=== PATIENT | female | born 2000 | race Caucasian/White ===

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

== ENCOUNTER 2021-08-21 12:57 | Emergency (ER) | payer OTHER ==
[2021-08-21] MEDS ORDERED: SODIUM CHLORIDE 0.9% 1,000 ML IV STA (13:08)
[2021-08-21] MEDS ORDERED: BACITRACIN OINT 1 EACH PACKET TOPICAL ONE (13:10)
[2021-08-21] MEDS ORDERED: LIDOCAINE 1% INJ 10MG/ML (5 ML VIAL-PF) SQ STA (13:10)
[2021-08-21 13:13] VITALS: RESP 18; TEMP 98.5
[2021-08-21 13:35] LABS: Glucose,Whole Blood 88 mg/dL (75-99)
--- NOTE | 2021-08-21 13:46 | ED ---
General Adult HPI - General Chief complaint: Syncope Stated complaint: syncope Time Seen by Provider: 08/21/21 12:59 Source: patient, EMS Mode of arrival: EMS Limitations: no limitations - History of Present Illness Initial comments: 20-year-old female patient presents to the emergency department today for evaluation after having a syncopal episode while at work. States she started to see stars and feel dizzy next thing she knew she passed out. She did strike her head is unsure if she hit an object or the floor. She does report headache currently. Denies blurred or double vision. She is approximately 15 weeks . . She sees Dr. Berry. Has not had a ultrasound yet to confirm intrauterine . She denies any current dizziness. Denies numbness, tingling, weakness to the extremities. Denies any neck or back pain. Denies any nausea or vomiting. States she has been eating well. Denies any hematuria, dysuria, urinary frequency, urinary urgency. States she has passed out one time in the past while she was in high school. Patient denies any recent rash, cough, shortness of breath, chest pain, abdominal pain, constipation, back pain, hematuria, dysuria, urinary urgency, urinary frequency, or any other complaints. - Related Data Home Medications Medication Instructions Recorded Confirmed Pnv No.95/Ferrous Fum/Folic AC 1 tab PO ONCE 10/05/17 11/07/17 [ Multivitamin Tablet] Previous Rx's Medication Instructions Recorded Ibuprofen [Motrin] 600 mg PO Q6HR PRN #40 tab 11/08/17 Allergies Allergy/AdvReac Type Severity Reaction Status Date / Time No Known Allergies Allergy Verified 11/07/17 05:52 Review of Systems ROS Statement: Those systems with pertinent positive or pertinent negative responses have been documented in the HPI. ROS Other: All systems not noted in ROS Statement are negative. 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,BROKEN ARM, BROKEN FOOT History of Any Multi-Drug Resistant Organisms: None Reported Past Surgical History: Orthopedic Surgery Additional Past Surgical History / Comment(s): left ACL Past Anesthesia/Blood Transfusion Reactions: No Reported Reaction Past Psychological History: No Psychological Hx Reported Smoking Status: Former smoker Past Alcohol Use History: None Reported Past Drug Use History: None Reported - Past Family History Father Family Medical History: No Reported History Mother Family Medical History: No Reported History General Exam Limitations: no limitations General appearance: alert, in no apparent distress, other (Physical well- developed, well-nourished adult female in no acute distress.) Head exam: Present: other (Right forehead laceration, 4 cm.) Eye exam: Present: normal appearance, PERRL, EOMI. Absent: scleral icterus, conjunctival injection, nystagmus, periorbital swelling ENT exam: Present: normal exam, normal oropharynx, mucous membranes moist Neck exam: Present: normal inspection, full ROM, other (Nontender, no step-off, no deformity to firm midline palpation of the posterior cervical spine. Full range of motion without pain or limitation.). Absent: tenderness, meningismus, lymphadenopathy Respiratory exam: Present: normal lung sounds bilaterally. Absent: respiratory distress, wheezes, rales, rhonchi, stridor Cardiovascular Exam: Present: regular rate, normal rhythm, normal heart sounds. Absent: systolic murmur, diastolic murmur, rubs, gallop, clicks GI/Abdominal exam: Present: soft, normal bowel sounds. Absent: distended, tenderness, guarding, rebound, rigid Back exam: Present: normal inspection, other (Nontender, no step-off, no deformity to firm midline palpation of the thoracic and lumbar vertebrae. Full range of motion without pain or limitation.). Absent: vertebral tenderness Neurological exam: Present: alert, oriented X3, CN II-XII intact, other (Strength in all 4 extremities is 5/5.) Psychiatric exam: Present: normal affect, normal mood Skin exam: Present: warm, dry, intact, normal color. Absent: rash Course Vital Signs 08/21/21 08/21/21 08/21/21 12:59 14:01 15:36 Temperature 98.5 F Pulse Rate 78 67 64 Respiratory 18 18 18 Rate Blood Pressure 115/75 114/65 111/81 O2 Sat by Pulse 98 96 96 Oximetry EKG Findings - EKG Comments: EKG Findings:: EKG obtained at 1300 shows sinus bradycardia with sinus arrhythmia. Ventricular rate is 59, UT interval 141, QRS duration 75, QT 430, QTC 430. No evidence of ST elevation or depression. Procedures - Laceration Laceration #1 Consent Obtained: verbal consent Indication: laceration Site: face (Right eyebrow) Size (cm): 4 Description: linear Depth: simple, single layer Anesthetic Used: lidocaine 1% Anesthesia Technique: local infiltration Amount (mls): 4 Pre-repair: irrigated extensively Type of Sutures: nylon Size of Sutures: 6-0 Number of Sutures: 7 Technique: simple, interrupted Patient Tolerated Procedure: well, no complications Medical Decision Making - Medical Decision Making 20-year-old female patient currently 15 weeks presents for evaluation after syncopal episode while working. Physical examination is unremarkable. She is neurologically intact with no focal deficits. Labs reviewed and did reveal sodium 135, chloride 108. Blood glucose 88. Urinalysis is unremarkable for infection. heart tones were within normal range. She denies any headache and repeat neuro evaluation was also within normal range. Due to her we used shared decision making to decide not to do computed tomography scan at this time. Should have laceration to the forehead which was repaired as documented. She is instructed to increase fluids. She has an appointment with her MEDIA LIBRARIAN on Monday she is urged to keep this appointment. Return parameters were discussed in detail. She verbalizes understanding and agrees with this plan. My attending is Dr. Gore. - Lab Data Result diagrams: 08/21/21 13:20 08/21/21 13:20 Lab Results 08/21/21 08/21/21 08/21/21 Range/Units 13:20 13:20 13:20 WBC 7.6 (3.8-10.6) k/uL RBC 4.20 (3.80-5.40) m/uL Hgb 12.7 (11.4-16.0) gm/dL Hct 37.3 (34.0-46.0) % MCV 88.8 (80.0-100.0) fL MCH 30.3 (25.0-35.0) pg MCHC 34.1 (31.0-37.0) g/dL RDW 13.1 (11.5-15.5) % Plt Count 208 (150-450) k/uL MPV 6.9 Neutrophils % 79 % Lymphocytes % 14 % Monocytes % 4 % Eosinophils % 1 % Basophils % 0 % Neutrophils # 6.1 (1.3-7.7) k/uL Lymphocytes # 1.1 (1.0-4.8) k/uL Monocytes # 0.3 (0-1.0) k/uL Eosinophils # 0.1 (0-0.7) k/uL Basophils # 0.0 (0-0.2) k/uL Manual Slide Review Performed RBC Morphology Normal PT 10.3 (9.0-12.0) sec INR 0.9 (<1.2) APTT 19.1 L (22.0-30.0) sec Sodium 135 L (137-145) mmol/L Potassium 4.1 (3.5-5.1) mmol/L Chloride 108 H (98-107) mmol/L Carbon Dioxide 19 L (22-30) mmol/L Anion Gap 8 mmol/L BUN 6 L (7-17) mg/dL Creatinine 0.54 (0.52-1.04) mg/dL Est GFR (CKD-EPI)AfAm >90 (>60 ml/min/1.73 sqM) Est GFR (CKD-EPI)NonAf >90 (>60 ml/min/1.73 sqM) Glucose 81 (74-99) mg/dL POC Glucose (mg/dL) (75-99) mg/dL POC Glu Deputy Clerk Of Court ID Calcium 8.7 (8.4-10.2) mg/dL Total Bilirubin 0.4 (0.2-1.3) mg/dL AST 21 (14-36) U/L ALT 13 (4-34) U/L Alkaline Phosphatase 48 (38-126) U/L Troponin I (0.000-0.034) ng/mL Total Protein 6.7 (6.3-8.2) g/dL Albumin 3.9 (3.5-5.0) g/dL Urine Color Urine Appearance (Clear) Urine pH (5.0-8.0) Ur Specific [place] (1.001-1.035) Urine Protein (Negative) Urine Glucose (UA) (Negative) Urine Ketones (Negative) Urine Blood (Negative) Urine Nitrite (Negative) Urine Bilirubin (Negative) Urine Urobilinogen (<2.0) mg/dL Ur Leukocyte Esterase (Negative) Urine RBC (0-5) /hpf Urine WBC (0-5) /hpf Ur Squamous Epith Cells (0-4) /hpf Urine Bacteria (None) /hpf Urine Mucus (None) /hpf 08/21/21 08/21/21 08/21/21 Range/Units 13:20 13:34 14:38 WBC (3.8-10.6) k/uL RBC (3.80-5.40) m/uL Hgb (11.4-16.0) gm/dL Hct (34.0-46.0) % MCV (80.0-100.0) fL MCH (25.0-35.0) pg MCHC (31.0-37.0) g/dL RDW (11.5-15.5) % Plt Count (150-450) k/uL MPV Neutrophils % % Lymphocytes % % Monocytes % % Eosinophils % % Basophils % % Neutrophils # (1.3-7.7) k/uL Lymphocytes # (1.0-4.8) k/uL Monocytes # (0-1.0) k/uL Eosinophils # (0-0.7) k/uL Basophils # (0-0.2) k/uL Manual Slide Review RBC Morphology PT (9.0-12.0) sec INR (<1.2) APTT (22.0-30.0) sec Sodium (137-145) mmol/L Potassium (3.5-5.1) mmol/L Chloride (98-107) mmol/L Carbon Dioxide (22-30) mmol/L Anion Gap mmol/L BUN (7-17) mg/dL Creatinine (0.52-1.04) mg/dL Est GFR (CKD-EPI)AfAm (>60 ml/min/1.73 sqM) Est GFR (CKD-EPI)NonAf (>60 ml/min/1.73 sqM) Glucose (74-99) mg/dL POC Glucose (mg/dL) 88 (75-99) mg/dL POC Glu Deputy Clerk Of Court ID ReyesJeremias Calcium (8.4-10.2) mg/dL Total Bilirubin (0.2-1.3) mg/dL AST (14-36) U/L ALT (4-34) U/L Alkaline Phosphatase (38-126) U/L Troponin I <0.012 (0.000-0.034) ng/mL Total Protein (6.3-8.2) g/dL Albumin (3.5-5.0) g/dL Urine Color Light Yellow Urine Appearance Cloudy H (Clear) Urine pH 6.5 (5.0-8.0) Ur Specific [place] 1.007 (1.001-1.035) Urine Protein Negative (Negative) Urine Glucose (UA) Negative (Negative) Urine Ketones 1+ H (Negative) Urine Blood Negative (Negative) Urine Nitrite Negative (Negative) Urine Bilirubin Negative (Negative) Urine Urobilinogen <2.0 (<2.0) mg/dL Ur Leukocyte Esterase Large H (Negative) Urine RBC 5 (0-5) /hpf Urine WBC 5 (0-5) /hpf Ur Squamous Epith Cells 25 H (0-4) /hpf Urine Bacteria Occasional H (None) /hpf Urine Mucus Rare H (None) /hpf Disposition Clinical Impression: Syncope, Forehead laceration Disposition: HOME SELF-CARE Condition: Good Instructions (If sedation given, give patient instructions): Care For Your Stitches (ED), Laceration (ED), Syncope (ED), Head Injury (ED) Additional Instructions: Keep wound clean and dry. Cleanse twice daily with warm water and antibacterial soap. Monitor for signs or symptoms of worsening head injury including but not limited to severe headache, dizziness, confusion, or vomiting. Increase fluids. Rest. Follow-up with your MEDIA LIBRARIAN for recheck as soon as possible. Return to the emergency department for any new, worsening, or concerning symptoms. Is patient prescribed a controlled substance at d/c from ED?: No Referrals: None,Stated [Primary Care Provider] - 1-2 days Time of Disposition: 15:14
[2021-08-21 13:50] LABS: ALT 13 U/L (4-34); AST 21 U/L (14-36); African American GFR (CKD) >90 (>60 ml/min/1.73 sqM); Albumin 3.9 g/dL (3.5-5.0); Alkaline Phosphatase 48 U/L (38-126); Anion Gap 8 mmol/L; Blood Urea Nitrogen 6 mg/dL (7-17); Calcium 8.7 mg/dL (8.4-10.2); Carbon Dioxide 19 mmol/L (22-30); Chloride 108 mmol/L (98-107); Glucose 81 mg/dL (74-99); Non-African American GFR(CKD) >90 (>60 ml/min/1.73 sqM); Potassium 4.1 mmol/L (3.5-5.1); Sodium 135 mmol/L (137-145); Total Bilirubin 0.4 mg/dL (0.2-1.3); Total Protein 6.7 g/dL (6.3-8.2)
[2021-08-21 14:04] LABS: INR 0.9 (<1.2); Prothrombin Time 10.3 sec (9.0-12.0)
[2021-08-21 14:21] LABS: Basophils % (A) 0 %; Eosinophils # (A) 0.1 k/uL (0-0.7); Eosinophils % (A) 1 %; HCT 37.3 % (34.0-46.0); HGB 12.7 gm/dL (11.4-16.0); Lymphocytes # (A) 1.1 k/uL (1.0-4.8); Lymphocytes % (A) 14 %; MCH 30.3 pg (25.0-35.0); MCHC 34.1 g/dL (31.0-37.0); MCV 88.8 fL (80.0-100.0); Mean Platelet Volume 6.9; Monocytes # (A) 0.3 k/uL (0-1.0); Monocytes % (A) 4 %; Neutrophils # (A) 6.1 k/uL (1.3-7.7); Neutrophils % (A) 79 %; Platelet Count 208 k/uL (150-450); RDW 13.1 % (11.5-15.5); WBC 7.6 k/uL (3.8-10.6)
[2021-08-21 14:31] LABS: Partial Thromboplastin Time 19.1 sec (22.0-30.0)
[2021-08-21 14:51] LABS: Appearance,Urine Cloudy (Clear); Bacteria,Urine Occasional /hpf; Bilirubin,Urine Negative (Negative); Blood,Urine Negative (Negative); Color,Urine Light Yellow; Glucose,Urine (UA) Negative (Negative); Ketones,Urine 1+ (Negative); Leukocyte Esterase,Urine Large (Negative); Mucus,Urine Rare /hpf; Nitrite,Urine Negative (Negative); PH, Urine 6.5 (5.0-8.0); Protein,Urine Negative (Negative); RBC,Urine 5 /hpf (0-5); Specific Gravity,Urine 1.007 (1.001-1.035); Squamous Epithelial Cell,Urine 25 /hpf (0-4); Urobilinogen,Urine <2.0 mg/dL (<2.0); WBC,Urine 5 /hpf (0-5)
[2021-08-21 15:22] LABS: RBC Morphology Normal
[2021-08-21 15:37] VITALS: BP 111/81; PULSE 64
== END 2021-08-21 15:37 | disposition home or self-care (01) ==
LOC: EC 12:57
DX: O9A.212 Injury, poisoning and certain other consequences of external causes complicating pregnancy, second trimester (principal); S01.81XA Laceration without foreign body of other part of head, initial encounter; R55 Syncope and collapse; Z87.891 Personal history of nicotine dependence; W19.XXXA Unspecified fall, initial encounter; Z3A.15 15 weeks gestation of pregnancy
CPT/HCPCS: 36415; 93005; 80053; 84484; 85025; 85610; 85730; 81001; 12013; 99285; 96360; 96361; J2001

== ENCOUNTER 2021-12-30 08:13 | Outpatient (CLI) | payer OTHER ==
[2021-12-30 09:15] LABS: Appearance,Urine Clear (Clear); Bacteria,Urine Occasional /hpf; Bilirubin,Urine Negative (Negative); Blood,Urine Negative (Negative); Color,Urine Colorless; Glucose,Urine (UA) Negative (Negative); Ketones,Urine Negative (Negative); Leukocyte Esterase,Urine Small (Negative); Mucus,Urine Rare /hpf; Nitrite,Urine Negative (Negative); Protein,Urine Negative (Negative); RBC,Urine 1 /hpf (0-5); Specific Gravity,Urine 1.004 (1.001-1.035); Squamous Epithelial Cell,Urine 3 /hpf (0-4); Urobilinogen,Urine <2.0 mg/dL (<2.0); WBC,Urine 1 /hpf (0-5)
[2021-12-30 09:34] VITALS: BP 101/61; PULSE 99; RESP 16; TEMP 97.2
--- NOTE | 2022-01-04 07:01 | P.MSEPDOC ---
Presenting Problems - Arrival Data Date of Arrival on Unit: 12/30/21 Time of Arrival on Unit: 08:28 Mode of Transport: Ambulatory - Complaint OB-Reason for Admission/Chief Complaint: Pain Medical History - Information : 2 Para: 1 Number of Living Children: 1 - Gestational Age Gestational Age by [place] (wks/days): 34 Weeks and 1 Days Review of Systems - Review of Systems Constitutional: No problems Breast: No problems ENT: No problems Cardiovascular: No problems Respiratory: No problems Gastrointestinal: No problems Genitourinary: No problems Musculoskeletal: No problems Neurological: No problems Skin: No problems Vital Signs - Temperature Temperature: 97.2 F Temperature Source: Oral - Pulse Right Sitting Brachial Pulse Rate: 99 Pulse Assessment Method: Automatic Cuff - Respirations Respiratory Rate: 16 Oxygen Delivery Method: Room Air O2 Sat by Pulse Oximetry: 97 - Blood Pressure Right Arm Sitting Blood Pressure: 101/61 Blood Pressure Mean: 74 Blood Pressure Source: Automatic Cuff Medical Screen Scoring - Cervical Exam Dilation (cm): 0 Effacement (%): 0 Station: -2 Membranes: Intact - Uterine Contractions Frequency From (mins): 0 Frequency To (mins): 0 Duration From (seconds): 0 Duration To (seconds): 0 Intensity: Absent Resting: Soft to palpation - Assessment - Baby A Baseline FHR: 120 Heart Rate - NICHD Category: Category I (Normal) NST: Reactive Physician Notification - Physician Notified Physician Notified Date: 12/30/21 Physician Notified Time: 08:33 Physician: Troy Berry New Order Received: Yes - Notification Comment Comment: labs, monitor Maternal Triage Index - Maternal Triage Index Presenting for scheduled procedure w/no complaint: No - Stat/Priority 1 Stat Priority 1: No - Urgent/Priority 2 Urgent Priority 2: No - Prompt/Priority 3 Prompt Priority 3: Yes Criteria Met for Priority 3: pain/contx Disposition - Disposition OB Disposition: Discharge to home Discharge Date: 12/30/21 Discharge Time: 09:30 I agree with the RN Medical Screening Exam: Yes Case reviewed; plan agreed upon as documented in EMR&OBIX.: Yes Diagnosis: FALSE LABOR BEFORE 37 COMPLETED WEEKS OF GEST, THIRD TRI
== END 2021-12-30 09:30 | disposition home or self-care (01) ==
LOC: FBPOP 08:13
PROVIDERS: ATTEND Obstetrics & Gynecology
DX: O47.03 False labor before 37 completed weeks of gestation, third trimester (principal); Z3A.34 34 weeks gestation of pregnancy
CPT/HCPCS: 59025; 81001; G0463; 99213

== ENCOUNTER 2022-02-03 05:44 | Inpatient (IN) | payer OTHER ==
--- NOTE | 2022-02-02 07:36 | P.HPOB ---
History of Present Illness H&P Date: 02/02/22 Chief Complaint: Requested induction of labor This patient is a pleasant 21-year-old 2 para 1 female estimated date of confinement 02/09/2022 estimated gestational age 39 and one sevenths weeks who presents to labor and delivery for requested induction of labor. Patient's care has been complicated by a syncopal episode in the first trimester that resulted in a right orbit laceration. Patient also has a history of macrosomia without any delivery problems. Patient's had an negative group B strep this however had a positive group B strep with a previous . Patient is uncomfortable at this time and requesting induction. 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,BROKEN ARM, BROKEN FOOT History of Any Multi-Drug Resistant Organisms: None Reported Past Surgical History: Orthopedic Surgery Additional Past Surgical History / Comment(s): left ACL Past Anesthesia/Blood Transfusion Reactions: No Reported Reaction Past Psychological History: No Psychological Hx Reported Smoking Status: Never smoker, Vaper Past Alcohol Use History: None Reported Past Drug Use History: None Reported - Past Family History Father Family Medical History: No Reported History Mother Family Medical History: No Reported History Medications and Allergies Home Medications Medication Instructions Recorded Confirmed Type Pnv No.95/Ferrous Fum/Folic AC 1 tab PO ONCE 10/05/17 12/30/21 History [ Multivitamin Tablet] Allergies Allergy/AdvReac Type Severity Reaction Status Date / Time No Known Allergies Allergy Verified 12/30/21 08:25 Exam - OBG Physical Exam Abdomen: bowel sounds normal, no diffuse tenderness, no bruit present, no guarding noted, no hepatomegaly, no splenomegaly, no mass Vulva: both: normal Vagina: normal moisture, no discharge Cervix: no lesion (Cervix is 2-3 cm soft and the office.), no discharge Uterus: enlarged (Fundal height is 39 cm) Results blood work shows she is a positive, rubella immune, RPR is nonreactive, hepatitis B is negative, HIV is nonreactive, Glucola was 88, ultrasounds have been normal most recent ultrasound showed the baby 5 lbs. 11 oz. Group B strep was negative Assessment and Plan Assessment: This is a pleasant 21-year-old 2 para 1 female 39 and one sevenths weeks gestation who presents to labor and delivery for requested induction of labor. Patient's had negative group B strep this but history of positive therefore plan is antibiotic prophylaxis, Pitocin induction of labor per protocol. Anticipate vaginal delivery. (1) 39 weeks gestation of Status: Acute Code(s): Z3A.39 - 39 WEEKS GESTATION OF SNOMED Code(s): 64338802 (2) History of group B Streptococcus urinary tract infection, currently Status: Acute Code(s): O09.899 - SUPERVISION OF OTHER HIGH RISK PREGNANCIES, UNSP TRIMESTER; Z87.440 - PERSONAL HISTORY OF URINARY (TRACT) INFECTIONS SNOMED Code(s): 3730137603826 (3) Elective induction of labor planned Status: Acute Code(s): OWB5078 - SNOMED Code(s): 640107651
[2022-02-03] MEDS ORDERED: TERBUTALINE 1 MG/ML VIAL SQ PRN (05:49)
[2022-02-03] MEDS ORDERED: LIDOCAINE 0.5% (PF) 5 MG/ML (50 ML SDV) SQ PRN (05:49)
[2022-02-03] MEDS ORDERED: LACTATED RINGERS 1,000 ML IV SCH (05:49)
[2022-02-03] MEDS ORDERED: OXYTOCIN 30 UNITS/500 ML NS 30 UNIT in SALINE 1 500ML.BAG IV SCH ×2 (05:49→12:39)
[2022-02-03] MEDS ORDERED: AMPICILLIN 2,000 MG in SODIUM CHLORIDE 0.9% 100 ML IVPB ONE (06:00)
[2022-02-03 06:29] LABS: Basophils % (A) 0 %; Eosinophils # (A) 0.2 k/uL (0-0.7); Eosinophils % (A) 2 %; HCT 36.1 % (34.0-46.0); HGB 12.5 gm/dL (11.4-16.0); Lymphocytes # (A) 1.9 k/uL (1.0-4.8); Lymphocytes % (A) 20 %; MCH 30.1 pg (25.0-35.0); MCHC 34.7 g/dL (31.0-37.0); MCV 86.9 fL (80.0-100.0); Mean Platelet Volume 7.9; Monocytes # (A) 0.6 k/uL (0-1.0); Monocytes % (A) 6 %; Neutrophils # (A) 6.6 k/uL (1.3-7.7); Neutrophils % (A) 68 %; Platelet Count 236 k/uL (150-450); RBC 4.16 m/uL (3.80-5.40); RDW 13.9 % (11.5-15.5); WBC 9.6 k/uL (3.8-10.6)
[2022-02-03] MEDS ORDERED: AMPICILLIN 1,000 MG in SODIUM CHLORIDE 0.9% 50 ML IVPB SCH (10:00)
[2022-02-03] MEDS ORDERED: SODIUM CHLORIDE 0.9% 100 ML BAG ONE (10:42)
[2022-02-03] MEDS ORDERED: fentaNYL (PF) 50 MCG/ML 5 ML AMP ONE (10:42)
[2022-02-03] MEDS ORDERED: ROPIVACAINE 5 MG/ML 20 ML AMPULE ONE (10:42)
[2022-02-03] MEDS ORDERED: ROPIVACAINE 100 MG, fentaNYL (PF). 200 MCG in SODIUM CHLORIDE 0.9% 76 ML EPIDURAL ONE (11:08)
--- NOTE | 2022-02-03 12:16 | P.PROBDLV ---
Vaginal Delivery Note - . Vaginal Delivery Note: Normal vaginal delivery viable female Apgars 9 and 9 delivery time is 1201 hrs. Please see dictated H&P for intimate details of this patient's admission. In brief summary this is a pleasant 21-year-old 2 para 1 female estimated gestational age 39 and one sevenths weeks who presents to labor and delivery for requested induction of labor. On admission patient is given antibiotics due to history of positive strep with her first and Pitocin induction of labor per protocol. Patient is artificial rupture membranes at 3 cm dilated for clear fluid. Labor progresses quickly and she does get an epidural for pain control. Patient gets to complete pushes the head to the perineum. Posterior perineum was supported we have controlled delivery of the 's head over the intact perineum. Mouth and nares are bulb suctioned. Infant's head is straight occiput anterior presentation. At this time the anterior shoulder spontaneously delivers followed by the posterior shoulder and rest this infant's body. This is a vigorous viable female Apgars are 9 and 9 delivery time was 1201 hrs. After delivery of the the infant is laid on the mother's abdomen. The umbilical cord is clamped and cut after it is done pulsating. The bladder is drained this time for a couple 100 mL of urine and then the placenta spontaneously delivers intact. Estimated blood loss is about 100 mL. Inspection of perineum shows a superficial posterior first-degree laceration is reapproximated with 3-0 Vicryl good reapproximation is noted. There are no complications. All counts are correct 3. Infant and mother stable delivery room.
[2022-02-03] MEDS ORDERED: BENZOCAINE/MENTHOL SPRAY 1 GM/SPRAY AEROSOL TOPICAL PRN (12:39)
[2022-02-03] MEDS ORDERED: diphenhydrAMINE 50 MG/ML 1 ML VIAL IVP PRN (12:39)
[2022-02-03] MEDS ORDERED: LANOLIN CREAM 5 GM TUBE TOPICAL PRN (12:39)
[2022-02-03] MEDS ORDERED: HYDROCORTISONE 2.5% RECTAL CREAM 30 GM TUBE RECTAL PRN (12:39)
[2022-02-03] MEDS ORDERED: SIMETHICONE 80 MG CHEWABLE PO PRN (12:39)
[2022-02-03] MEDS ORDERED: ZOLPIDEM 5 MG TAB PO PRN (12:39)
[2022-02-03] MEDS ORDERED: IBUPROFEN 600 MG TAB PO PRN (12:39)
[2022-02-03] MEDS ORDERED: diphenhydrAMINE 25 MG CAP PO PRN (12:39)
[2022-02-03] MEDS ORDERED: bisacodyL 10 MG SUPP RECTAL PRN (12:39)
[2022-02-03] MEDS ORDERED: ACETAMINOPHEN TAB 325 MG TAB PO PRN (12:39)
[2022-02-03] MEDS: SENNOSIDES-DOCUSATE SODIUM 1 EACH TAB PO SCH ×2 (20:20→20:34)
--- NOTE | 2022-02-04 06:15 | P.PNOBGVD ---
Subjective - Subjective Patient reports: Reports appetite normal, Reports voiding normally, Reports pain well controlled, Reports ambulating normally : doing well Objective - Latest Vital Signs Latest vital signs: Vital Signs Temp Pulse Resp BP Pulse Ox 02/04/22 04:00 98.0 F 76 16 106/70 96 02/04/22 00:00 98.0 F 63 16 108/68 02/03/22 20:00 98.5 F 84 16 112/78 96 02/03/22 15:01 98.5 F 66 16 113/65 02/03/22 14:40 97.0 F L 81 16 112/64 02/03/22 13:52 64 16 113/65 02/03/22 13:25 72 16 108/60 02/03/22 13:10 68 16 132/80 02/03/22 12:55 68 16 112/63 02/03/22 12:40 97.0 F L 84 16 114/72 02/03/22 12:25 88 16 120/70 Intake and Output 02/03/22 02/03/22 02/04/22 14:59 22:59 06:59 Output Total 550 600 Balance -550 -600 Output: Urine 200 600 Estimated Blood Loss 150 Output, Quantitative 200 Blood Loss Other: # Voids 1 1 2 - Exam Lungs: bilateral: normal Chest: Normal S1, Normal S2 Extremities: Present: normal Abdomen: Present: normal appearance, soft Uterus: Present: normal, firm Assessment and Plan Assessment: Post day #1. Patient is resting without complaints and wishes to go home. Vital signs are stable she's afebrile. Uterus is firm nontender and she is having normal lochia. My impression this is a normal course. Plan is to continue routine care discharge home later today. (1) 39 weeks gestation of Current Visit: No Status: Acute Code(s): Z3A.39 - 39 WEEKS GESTATION OF SNOMED Code(s): 61208945 (2) History of group B Streptococcus urinary tract infection, currently Current Visit: No Status: Acute Code(s): O09.899 - SUPERVISION OF OTHER HIGH RISK PREGNANCIES, UNSP TRIMESTER; Z87.440 - PERSONAL HISTORY OF URINARY (TRACT) INFECTIONS SNOMED Code(s): 5791577910350 (3) Elective induction of labor planned Current Visit: No Status: Acute Code(s): SZM1709 - SNOMED Code(s): 036320998
--- NOTE | 2022-02-04 06:20 | P.DS ---
Providers Date of admission: 02/03/22 05:44 Expected date of discharge: 02/04/22 Attending physician: Troy Berry Primary care physician: Stated None - Discharge Diagnosis(es) (1) 39 weeks gestation of Current Visit: No Status: Acute (2) History of group B Streptococcus urinary tract infection, currently Current Visit: No Status: Acute (3) Elective induction of labor planned Current Visit: No Status: Acute Hospital Course: Please see dictated H&P for intimate details of this patient's admission. Brief summary this is a pleasant 21-year-old 2 para 1 female 39 and one sevenths weeks who is admitted to labor and delivery for elective induction of labor. Patient was on have a vaginal delivery viable female . Please see dictated delivery note. day #1 patient's felt be stable for discharge home follow up with me in 6 weeks. Procedures: Induction of labor and normal vaginal delivery Patient Condition at Discharge: Good Plan - Discharge Summary New Discharge Prescriptions: New Ibuprofen [Motrin] 600 mg PO Q6HR PRN #30 tab PRN Reason: Mild Pain (Scale 1 To 3) No Action Pnv No.95/Ferrous Fum/Folic AC [ Multivitamin Tablet] 1 tab PO ONCE Discharge Medication List Pnv No.95/Ferrous Fum/Folic AC [ Multivitamin Tablet] 1 tab PO ONCE 10/05/17 [History] Ibuprofen [Motrin] 600 mg PO Q6HR PRN #30 tab 02/04/22 [Rx] Follow up Appointment(s)/Referral(s): Troy Berry MD [STAFF PHYSICIAN] - 03/17/22 9:30 am
[2022-02-04 07:00] LABS: Basophils % (A) 0 %; Eosinophils # (A) 0.2 k/uL (0-0.7); Eosinophils % (A) 1 %; HCT 34.3 % (34.0-46.0); HGB 12.1 gm/dL (11.4-16.0); Lymphocytes # (A) 2.1 k/uL (1.0-4.8); Lymphocytes % (A) 19 %; MCH 30.8 pg (25.0-35.0); MCHC 35.2 g/dL (31.0-37.0); MCV 87.6 fL (80.0-100.0); Mean Platelet Volume 7.5; Monocytes # (A) 0.8 k/uL (0-1.0); Monocytes % (A) 7 %; Neutrophils # (A) 7.8 k/uL (1.3-7.7); Neutrophils % (A) 70 %; Platelet Count 186 k/uL (150-450); RBC 3.92 m/uL (3.80-5.40); RDW 13.6 % (11.5-15.5); WBC 11.2 k/uL (3.8-10.6)
[2022-02-04] MEDS: SENNOSIDES-DOCUSATE SODIUM 1 EACH TAB PO SCH (08:01)
[2022-02-04 08:07] VITALS: BP 107/72; PULSE 66; RESP 14; TEMP 97.8
== END 2022-02-04 14:15 | disposition home or self-care (01) | DRG 807 ==
LOC: 4FBP 05:44
PROVIDERS: ADMIT Obstetrics & Gynecology; ATTEND Obstetrics & Gynecology
PROC: 0HQ9XZZ Repair Perineum Skin, External Approach (ICD-10-PCS; principal; 2022-02-03)
PROC: 10E0XZZ Delivery of Products of Conception, External Approach (ICD-10-PCS; principal; 2022-02-03)
DX: O70.0 First degree perineal laceration during delivery (principal); Z37.0 Single live birth; Z86.73 Personal history of transient ischemic attack (TIA), and cerebral infarction without residual deficits; H91.92 Unspecified hearing loss, left ear; Z3A.39 39 weeks gestation of pregnancy; Z87.440 Personal history of urinary (tract) infections; Z28.310 Unvaccinated for COVID-19
CPT/HCPCS: 85025; 86850; 86900; 86901

== ENCOUNTER 2022-07-07 21:17 | Emergency (ER) | payer OTHER ==
[2022-07-07 21:26] VITALS: BP 115/75
[2022-07-07] MEDS ORDERED: SODIUM CHLORIDE 0.9% 1,000 ML IV ONE (22:00)
[2022-07-07] MEDS ORDERED: ONDANSETRON 4 MG/2 ML VIAL IVP STA (22:00)
[2022-07-07] MEDS ORDERED: KETOROLAC 15 MG/ML 1 ML VIAL IVP STA (22:14)
--- NOTE | 2022-07-07 22:33 | ED ---
General Adult HPI - General Chief complaint: Fever Stated complaint: Mastitis Time Seen by Provider: 07/07/22 21:38 Source: patient Mode of arrival: ambulatory Limitations: no limitations - History of Present Illness Initial comments: This is a 21-year-old female with no past medical history presents emergency department for right breast tenderness and discharge. The patient is 5 months and stated that over the last one day she started to experience pain in the right nipple radiating up to her axilla. The patient stated that she had dark breastmilk and had continued pain and tenderness throughout the right breast throughout the day. The patient stated that she did have fevers and chills earlier in the day today which made her come to the emergency department. The patient denied any other acute pain or complaints at this time. The patient was resting in bed without any other complaints but did state that her right breast was tender to even small motion. - Related Data Home Medications Medication Instructions Recorded Confirmed Pnv No.95/Ferrous Fum/Folic AC 1 tab PO ONCE 10/05/17 02/03/22 [ Multivitamin Tablet] Previous Rx's Medication Instructions Recorded Ibuprofen [Motrin] 600 mg PO Q6HR PRN #30 tab 02/04/22 Dicloxacillin [Dynapen] 500 mg PO Q6H #40 capsule 07/07/22 Allergies Allergy/AdvReac Type Severity Reaction Status Date / Time No Known Allergies Allergy Verified 07/07/22 21:22 Review of Systems ROS Statement: Those systems with pertinent positive or pertinent negative responses have been documented in the HPI. ROS Other: All systems not noted in ROS Statement are negative. 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,BROKEN ARM, BROKEN FOOT History of Any Multi-Drug Resistant Organisms: None Reported Past Surgical History: Orthopedic Surgery Additional Past Surgical History / Comment(s): left ACL Past Anesthesia/Blood Transfusion Reactions: No Reported Reaction Past Psychological History: No Psychological Hx Reported Smoking Status: Vaper Past Alcohol Use History: None Reported Past Drug Use History: None Reported - Past Family History Father Family Medical History: No Reported History Mother Family Medical History: No Reported History General Exam Limitations: no limitations General appearance: alert, in no apparent distress Head exam: Present: atraumatic, normocephalic, normal inspection Eye exam: Present: normal appearance, PERRL Pupils: Present: normal accommodation ENT exam: Present: normal exam, normal oropharynx, mucous membranes moist Neck exam: Present: normal inspection, full ROM Respiratory exam: Present: normal lung sounds bilaterally Cardiovascular Exam: Present: regular rate, normal rhythm, normal heart sounds GI/Abdominal exam: Present: soft, normal bowel sounds Extremities exam: Present: normal inspection, full ROM Back exam: Present: normal inspection, full ROM Neurological exam: Present: alert, oriented X3, CN II-XII intact Psychiatric exam: Present: normal affect, normal mood Skin exam: Present: warm, dry Expanded Type of lesion: Present: other (Erythema noted around the right breast with minimal dried white discharge noted at the right nipple. There was tenderness palpation over the right breast up through the 10 o'clock position. There was minor swelling and tenderness palpation in the right axilla. A head of research & insights was present ) Course Vital Signs 07/07/22 07/07/22 21:23 23:28 Temperature 101.9 F H 98.9 F Pulse Rate 125 H 85 Respiratory 18 16 Rate Blood Pressure 115/75 O2 Sat by Pulse 98 Oximetry Medical Decision Making - Medical Decision Making Was pt. sent in by a medical professional or institution (, PA, PERIPATOLOGIST, urgent care, hospital, or [place] health care facility...) When possible be specific @ -No Did you speak to anyone other than the patient for history (EMS, parent, family, police, friend...)? What history was obtained from this source @ -No Did you review nursing and triage notes (agree or disagree)? Why? @ -I reviewed and agree with nursing and triage notes Were old charts reviewed (outside hosp., previous admission, EMS record, old EKG, old radiological studies, urgent care reports/EKG's, [place] health care facility records)? Report findings @ -No old charts were reviewed Differential Diagnosis (chest pain, altered mental status, abdominal pain women, abdominal pain men, vaginal bleeding, weakness, fever, dyspnea, syncope, headache, dizziness, GI bleed, back pain, seizure, CVA, palpatations, mental health)? @ -Breast abscess, breast cellulitis, mastitis EKG interpreted by me (3pts min.). @ -None X-rays interpreted by me (1pt min.). @ -None done CT interpreted by me (1pt min.). @ -None done U/S interpreted by me (1pt. min.). @ -None done What testing was considered but not performed or refused? (CT, X-rays, U/S, labs)? Why? @ -An ultrasound of the right breast was considered however the patient didn't have any fluctuance or central area of induration or erythema noted. What meds were considered but not given or refused? Why? @ -None Did you discuss the management of the patient with other professionals (professionals i.e. , PA, PERIPATOLOGIST, lab, RT, psych nurse, healthcare social worker, wire turning machine operator, teacher, transportation officer, shelter case manager)? Give summary @ -No Was smoking cessation discussed for >3mins.? @ -No Was critical care preformed (if so, how long)? @ -No Were there social determinants of health that impacted care today? How? (Homelessness, low income, unemployed, alcoholism, drug addiction, transportation, low edu. Level, literacy, decrease access to med. care, alf, rehab)? @ -No Was there de-escalation of care discussed even if they declined (Discuss DNR or withdrawal of care, Hospice)? DNR status @ -No What co-morbidities impacted this encounter? (DM, HTN, Smoking, COPD, CAD, Cancer, CVA, ARF, Chemo, Hep., AIDS, mental health diagnosis, sleep apnea, morbid obesity)? @ -None Was patient admitted / discharged? Hospital course, mention meds given and route, prescriptions, significant lab abnormalities, going to OR and other pertinent info. @ -The patient was seen and evaluated in the emergency department. Physical exam, the patient was resting in bed without any acute distress. Initially, the patient had a temperature 101.9F and a heart rate of 125. On my evaluation, she was no longer tachycardic. Physical exam findings were consistent with mastitis and there was no central area of fluctuance or need for ultrasound at this time. Laboratory workup was obtained and did not show any abnormalities. Was started on dicloxacillin and the patient was given 1 L of normal saline fluid as well as Toradol. On reevaluation, the patient had significant improvement to her pain and discomfort. The patient was given a dose of antibiotic in the emergency department as well as a prescription for the remaind er of the antibiotic to be taken. The patient was counseled extensively to use warm compresses as well as Tylenol and Motrin for discomfort. The patient was also advised to continue to breast-feed. She was also counseled to report back to the emergency department if she had worsening swelling and pain despite being on antibiotics. The patient was agreeable to this and all of her questions were answered. The patient was discharged home in stable condition with her . Undiagnosed new problem with uncertain prognosis? @ -No Drug Therapy requiring intensive monitoring for toxicity (Heparin, Nitro, Insulin, Cardizem)? @ -No Were any procedures done? @ -No Diagnosis/symptom? @ -Right mastitis Acute, or Chronic, or Acute on Chronic? @ -Acute Uncomplicated (without systemic symptoms) or Complicated (systemic symptoms)? @ -Uncomplicated Side effects of treatment? @ -No Exacerbation, Progression, or Severe Exacerbation? @ -No Poses a threat to life or bodily function? How? (Chest pain, [place], [place], pneumonia, PE, COPD, DKA, ARF, appy, cholecystitis, CVA, Diverticulitis, Homicidal, Suicidal, threat to staff... and all critical care pts) @ -No - Lab Data Result diagrams: 07/07/22 22:38 07/07/22 22:38 Lab Results 07/07/22 07/07/22 Range/Units 22:38 22:38 WBC 10.4 (3.8-10.6) k/uL RBC 4.54 (3.80-5.40) m/uL Hgb 14.0 (11.4-16.0) gm/dL Hct 38.5 (34.0-46.0) % MCV 84.8 (80.0-100.0) fL MCH 30.8 (25.0-35.0) pg MCHC 36.3 (31.0-37.0) g/dL RDW 12.6 (11.5-15.5) % Plt Count 249 (150-450) k/uL MPV 6.7 Neutrophils % 88 % Lymphocytes % 7 % Monocytes % 4 % Eosinophils % 1 % Basophils % 0 % Neutrophils # 9.1 H (1.3-7.7) k/uL Lymphocytes # 0.8 L (1.0-4.8) k/uL Monocytes # 0.4 (0-1.0) k/uL Eosinophils # 0.1 (0-0.7) k/uL Basophils # 0.0 (0-0.2) k/uL Hyperchromasia Slight Sodium 137 (137-145) mmol/L Potassium 4.6 (3.5-5.1) mmol/L Chloride 106 (98-107) mmol/L Carbon Dioxide 22 (22-30) mmol/L Anion Gap 9 mmol/L BUN 18 H (7-17) mg/dL Creatinine 0.77 (0.52-1.04) mg/dL Est GFR (CKD-EPI)AfAm >90 (>60 ml/min/1.73 sqM) Est GFR (CKD-EPI)NonAf >90 (>60 ml/min/1.73 sqM) Glucose 100 H (74-99) mg/dL Calcium 9.3 (8.4-10.2) mg/dL Magnesium 1.8 (1.6-2.3) mg/dL Total Bilirubin 0.6 (0.2-1.3) mg/dL AST 28 (14-36) U/L ALT 28 (4-34) U/L Alkaline Phosphatase 95 (38-126) U/L Total Protein 8.1 (6.3-8.2) g/dL Albumin 4.7 (3.5-5.0) g/dL Disposition Clinical Impression: Mastitis Disposition: HOME SELF-CARE Condition: Stable Instructions (If sedation given, give patient instructions): Mastitis (ED) Prescriptions: Dicloxacillin [Dynapen] 500 mg PO Q6H #40 capsule Is patient prescribed a controlled substance at d/c from ED?: No Referrals: Pato Tyler DO [Primary Care Provider] - 1-2 days Time of Disposition: 22:50
[2022-07-07 22:44] LABS: Basophils % (A) 0 %; Eosinophils # (A) 0.1 k/uL (0-0.7); Eosinophils % (A) 1 %; HCT 38.5 % (34.0-46.0); Hyperchromasia Slight; Lymphocytes # (A) 0.8 k/uL (1.0-4.8); Lymphocytes % (A) 7 %; MCH 30.8 pg (25.0-35.0); MCHC 36.3 g/dL (31.0-37.0); MCV 84.8 fL (80.0-100.0); Mean Platelet Volume 6.7; Monocytes # (A) 0.4 k/uL (0-1.0); Monocytes % (A) 4 %; Neutrophils # (A) 9.1 k/uL (1.3-7.7); Neutrophils % (A) 88 %; Platelet Count 249 k/uL (150-450); RBC 4.54 m/uL (3.80-5.40); RDW 12.6 % (11.5-15.5); WBC 10.4 k/uL (3.8-10.6)
[2022-07-07 22:56] LABS: ALT 28 U/L (4-34); AST 28 U/L (14-36); African American GFR (CKD) >90 (>60 ml/min/1.73 sqM); Albumin 4.7 g/dL (3.5-5.0); Alkaline Phosphatase 95 U/L (38-126); Anion Gap 9 mmol/L; Blood Urea Nitrogen 18 mg/dL (7-17); Calcium 9.3 mg/dL (8.4-10.2); Carbon Dioxide 22 mmol/L (22-30); Chloride 106 mmol/L (98-107); Glucose 100 mg/dL (74-99); Magnesium 1.8 mg/dL (1.6-2.3); Non-African American GFR(CKD) >90 (>60 ml/min/1.73 sqM); Potassium 4.6 mmol/L (3.5-5.1); Sodium 137 mmol/L (137-145); Total Bilirubin 0.6 mg/dL (0.2-1.3); Total Protein 8.1 g/dL (6.3-8.2)
[2022-07-07] MEDS ORDERED: DICLOXACILLIN 250 MG CAPSULE PO ONE (23:00)
[2022-07-07 23:29] VITALS: PULSE 85; RESP 16; TEMP 98.9
== END 2022-07-07 23:29 | disposition home or self-care (01) ==
LOC: EC 21:17
DX: N61.0 Mastitis without abscess (principal); F17.290 Nicotine dependence, other tobacco product, uncomplicated
CPT/HCPCS: 36415; 80053; 83735; 85025; 99283; 96374; 96375; 96361; J2405; J1885

== ENCOUNTER 2022-12-14 23:03 | Emergency (ER) | payer OTHER ==
[2022-12-14 23:23] VITALS: BP 132/76; PULSE 61; RESP 18; TEMP 98
[2022-12-15] MEDS ORDERED: ONDANSETRON 4 MG/2 ML VIAL IVP STA (01:08)
[2022-12-15] MEDS ORDERED: PANTOPRAZOLE 40 MG/10 ML VIAL IVP STA (01:08)
[2022-12-15] MEDS ORDERED: SODIUM CHLORIDE 0.9% 1,000 ML IV STA (01:08)
[2022-12-15] MEDS ORDERED: KETOROLAC 15 MG/ML 1 ML VIAL IVP STA (01:08)
[2022-12-15] MEDS ORDERED: diphenhydrAMINE 50 MG/ML 1 ML VIAL IVP STA (01:09)
--- NOTE | 2022-12-15 02:01 | ED ---
General Adult HPI - General Chief complaint: Abdominal Pain Stated complaint: Abdominal Pain Time Seen by Provider: 12/15/22 00:55 Source: patient, family, RN notes reviewed, old records reviewed Mode of arrival: wheelchair Limitations: no limitations - History of Present Illness Initial comments: Patient is a 22-year-old female who presents emergency Department complaining of primarily abdominal pain. Has been ongoing for the last 1-2 days. Complaining of epigastric and mild right upper quadrant abdominal discomfort. Associated with nonbilious nonbloody emesis. Total of 3 episodes of emesis today. Denies any constipation, and is still having episodes of flatus. Denies any shortness of breath. Does endorse some chest discomfort when she is throwing up. Denies any marijuana use. Denies any abdominal surgeries previously. His no other acute complaints at this time. Presents for further evaluation at this time. - Related Data Home Medications Medication Instructions Recorded Confirmed Pnv No.95/Ferrous Fum/Folic AC 1 tab PO ONCE 10/05/17 02/03/22 [ Multivitamin Tablet] Previous Rx's Medication Instructions Recorded Ibuprofen [Motrin] 600 mg PO Q6HR PRN #30 tab 02/04/22 Dicloxacillin [Dynapen] 500 mg PO Q6H #40 capsule 07/07/22 Cephalexin [Keflex] 500 mg PO Q6HR 10 Days #40 cap 07/08/22 Allergies Allergy/AdvReac Type Severity Reaction Status Date / Time No Known Allergies Allergy Verified 12/14/22 23:20 Review of Systems ROS Statement: Those systems with pertinent positive or pertinent negative responses have been documented in the HPI. Review of Systems: CONST: Denies fever EYES: Denies blurry vision ENT: Denies nasal congestion C/V: Denies Chest pain RESP: Denies shortness of breath GI: Endorses abdominal pain : Denies dysuria SKIN: Denies rash. MSK: Denies joint pain. NEURO: Denies headache ROS Other: All systems not noted in ROS Statement are negative. 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,BROKEN ARM, BROKEN FOOT History of Any Multi-Drug Resistant Organisms: None Reported Past Surgical History: Orthopedic Surgery Additional Past Surgical History / Comment(s): left ACL Past Anesthesia/Blood Transfusion Reactions: No Reported Reaction Past Psychological History: No Psychological Hx Reported Smoking Status: Vaper Past Alcohol Use History: None Reported Past Drug Use History: None Reported - Past Family History Father Family Medical History: No Reported History Mother Family Medical History: No Reported History General Exam - General Exam Comments Initial Comments: General: Appears in mild to moderate distress secondary to abdominal pain HEAD: Normal with no signs of head trauma. EYES: PERRLA, EOMI, conjunctiva normal, no discharge. ENT: Hearing grossly intact, normal oropharynx. RESPIRATORY: Clear breath sounds bilaterally. No wheezes, rales, or rhonchi. C/V: Regular rate and rhythm. S1 and S2 auscultated, peripheral pulses 2+ and intact throughout ABD: Abdomen is soft, nondistended. Tender to palpation epigastric and right upper quadrant. No guarding. No rebound tenderness. No peritoneal signs. EXT: Normal range of motion, no obvious deformity SKIN: No rashes or lesions observed on exposed skin. NEURO: Alert and oriented 4. Limitations: no limitations Course Vital Signs 12/14/22 23:20 Temperature 98 F Pulse Rate 61 Respiratory 18 Rate Blood Pressure 132/76 O2 Sat by Pulse 99 Oximetry Medical Decision Making - Medical Decision Making Was pt. sent in by a medical professional or institution (, PA, FELLMONGERING MACHINE OPERATOR, urgent care, hospital, or [facility]...) When possible be specific @ -No Did you speak to anyone other than the patient for history (EMS, parent, family, police, friend...)? What history was obtained from this source @ -No Did you review nursing and triage notes (agree or disagree)? Why? @ -I reviewed and agree with nursing and triage notes Were old charts reviewed (outside hosp., previous admission, EMS record, old EKG, old radiological studies, urgent care reports/EKG's, [facility] records)? Report findings @ -Old charts were reviewed Differential Diagnosis (chest pain, altered mental status, abdominal pain women, abdominal pain men, vaginal bleeding, weakness, fever, dyspnea, syncope, headache, dizziness, GI bleed, back pain, seizure, CVA, palpatations, mental health, musculoskeletal)? @ -Differential Abdominal Pain Women: Appendicitis, Cholecystitis, diverticulosis, ischemic bowel, pancreatitis, hepatitis, UTI, gastroenteritis, AAA, incarcerated hernia, bowel obstruction, constipation, inflammatory bowel, hepatitis, peptic ulcer disease, splenic infarction, perforated viscus, vulvitis, ovarian torsion, PID, kidney stone, placenta abruption, this is not meant to be an all-inclusive list EKG interpreted by me (3pts min.). @ -As above X-rays interpreted by me (1pt min.). @ -None done CT interpreted by me (1pt min.). @ -None done U/S interpreted by me (1pt. min.). @ -Gallbladder ultrasound interpreted by myself and was borderline. Patient does not have wall thickening but it is close to borderline as the wall thickness is 0.26 cm. Patient does have multiple shadowing gallstones present. No pericholecystic fluid. Radiology rounded out for wall thickness to 0.3cm. Patient's CBD is not distended and is within acceptable limits at 0.37cm. Apparently patient was sonographic Flynn sign positive. What testing was considered but not performed or refused? (CT, X-rays, U/S, labs)? Why? @ -None What meds were considered but not given or refused? Why? @ -None Did you discuss the management of the patient with other professionals (professionals i.e. , PA, FELLMONGERING MACHINE OPERATOR, lab, RT, psych nurse, school social worker, color dipper, teacher, light armored reconnaissance officer, disability case manager)? Give summary @ -No Was smoking cessation discussed for >3mins.? @ -No Was critical care preformed (if so, how long)? @ -No Were there social determinants of health that impacted care today? How? (Homelessness, low income, unemployed, alcoholism, drug addiction, transp ortation, low edu. Level, literacy, decrease access to med. care, detention, rehab)? @ -No Was there de-escalation of care discussed even if they declined (Discuss DNR or withdrawal of care, Hospice)? DNR status @ -No What co-morbidities impacted this encounter? (DM, HTN, Smoking, COPD, CAD, Cancer, CVA, ARF, Chemo, Hep., AIDS, mental health diagnosis, sleep apnea, morbid obesity)? @ -None Was patient admitted / discharged? Hospital course, mention meds given and route, prescriptions, significant lab abnormalities, going to OR and other pertinent info. @ -Based on the Patient's presentation and physical exam, I'm concerned for acute intra-abdominal process for current symptoms. We will obtain abdominal laboratory studies, screening EKG, as well as a couple on her ultrasound. She'll be symptomatically treated with IV fluids, Protonix, Zofran, Toradol. Patient was in agreement this plan. Vital signs within acceptable limits. EKG showed no evidence of acute ischemia. Ultrasound results were borderline. Radiology did round the patient's values up. Technically she falls under the normal range for occult blood or wall thickness as well as CBD size. Gallstones are present. Suggestive more of biliary colic, but likely clinical correlation needed. Patient's labs are remarkable for mild leukocytosis of 11.5 which is likely reactive. Hepat obiliary labs within normal limits. Remainder the labs within normal limits. On reevaluation after the patient received fluids, nausea meds, as well as Toradol she is feeling improved. She is tolerating oral intake. She would like to go home. Patient's pain has resolved as well. I did offer her admission for monitoring due to her borderline ultrasound findings, however she would still like to go home. I believe this is reasonable his labs appear within acceptable limits as well but strict return precautions were discussed including worsening symptoms. She was in agreement with this plan. Diagnosis at this time is biliary colic. I will provide the patient with a prescription for Zofran ODT. I instructed the patient to follow up with their PCP in the next 1-3 days. I provided contact information for follow up with gastroenterology. I explained that the patient should return to the emergency department if they experience any worsening symptoms. Strict return precautions were discussed with the patient. The patient expressed understanding of these instructions. I answered all questions that the patient had. The patient was discharged home in good condition with their prescriptions and follow up information. Undiagnosed new problem with uncertain prognosis? @ -No Drug Therapy requiring intensive monitoring for toxicity (Heparin, Nitro, Insulin, Cardizem)? @ -No Were any procedures done? @ -No Diagnosis/symptom? @ -Biliary colic Acute, or Chronic, or Acute on Chronic? @ -Acute Uncomplicated (without systemic symptoms) or Complicated (systemic symptoms)? @ -Complicated Side effects of treatment? @ -none Exacerbation, Progression, or Severe Exacerbation] @ -no Poses a threat to life or bodily function? @ -no - Lab Data Result diagrams: 12/15/22 01:32 09/21/23 01:32 Lab Results 12/15/22 12/15/22 12/15/22 Range/Units 01:32 01:32 01:32 WBC 11.5 H (3.8-10.6) k/uL RBC 4.76 (3.80-5.40) m/uL Hgb 14.4 (11.4-16.0) gm/dL Hct 41.8 (34.0-46.0) % MCV 87.8 (80.0-100.0) fL MCH 30.3 (25.0-35.0) pg MCHC 34.5 (31.0-37.0) g/dL RDW 12.1 (11.5-15.5) % Plt Count 273 (150-450) k/uL MPV 7.0 Neutrophils % 84 % Lymphocytes % 11 % Monocytes % 3 % Eosinophils % 1 % Basophils % 0 % Neutrophils # 9.6 H (1.3-7.7) k/uL Lymphocytes # 1.3 (1.0-4.8) k/uL Monocytes # 0.4 (0-1.0) k/uL Eosinophils # 0.1 (0-0.7) k/uL Basophils # 0.0 (0-0.2) k/uL PT 10.5 (9.0-12.0) sec INR 1.0 (<1.2) APTT 23.8 (22.0-30.0) sec Sodium (137-145) mmol/L Potassium (3.5-5.1) mmol/L Chloride (98-107) mmol/L Carbon Dioxide (22-30) mmol/L Anion Gap mmol/L BUN (7-17) mg/dL Creatinine (0.52-1.04) mg/dL Est GFR (CKD-EPI)AfAm (>60 ml/min/1.73 sqM) Est GFR (CKD-EPI)NonAf (>60 ml/min/1.73 sqM) Glucose (74-99) mg/dL Calcium (8.4-10.2) mg/dL Total Bilirubin (0.2-1.3) mg/dL AST (14-36) U/L ALT (4-34) U/L Alkaline Phosphatase (38-126) U/L Total Protein (6.3-8.2) g/dL Albumin (3.5-5.0) g/dL Amylase (30-110) U/L Lipase (23-300) U/L Urine Color Colorless Urine Appearance Clear (Clear) Urine pH 7.0 (5.0-8.0) Ur Specific [place] 1.014 (1.001-1.035) Urine Protein Negative (Negative) Urine Glucose (UA) Negative (Negative) Urine Ketones Negative (Negative) Urine Blood Negative (Negative) Urine Nitrite Negative (Negative) Urine Bilirubin Negative (Negative) Urine Urobilinogen <2.0 (<2.0) mg/dL Ur Leukocyte Esterase Negative (Negative) Urine HCG, Qual (Not Detectd) 12/15/22 12/15/22 Range/Units 01:32 01:32 WBC (3.8-10.6) k/uL RBC (3.80-5.40) m/uL Hgb (11.4-16.0) gm/dL Hct (34.0-46.0) % MCV (80.0-100.0) fL MCH (25.0-35.0) pg MCHC (31.0-37.0) g/dL RDW (11.5-15.5) % Plt Count (150-450) k/uL MPV Neutrophils % % Lymphocytes % % Monocytes % % Eosinophils % % Basophils % % Neutrophils # (1.3-7.7) k/uL Lymphocytes # (1.0-4.8) k/uL Monocytes # (0-1.0) k/uL Eosinophils # (0-0.7) k/uL Basophils # (0-0.2) k/uL PT (9.0-12.0) sec INR (<1.2) APTT (22.0-30.0) sec Sodium 136 L (137-145) mmol/L Potassium 3.9 (3.5-5.1) mmol/L Chloride 103 (98-107) mmol/L Carbon Dioxide 20 L (22-30) mmol/L Anion Gap 13 mmol/L BUN 13 (7-17) mg/dL Creatinine 0.78 (0.52-1.04) mg/dL Est GFR (CKD-EPI)AfAm >90 (>60 ml/min/1.73 sqM) Est GFR (CKD-EPI)NonAf >90 (>60 ml/min/1.73 sqM) Glucose 116 H (74-99) mg/dL Calcium 9.7 (8.4-10.2) mg/dL Total Bilirubin 0.5 (0.2-1.3) mg/dL AST 28 (14-36) U/L ALT 20 (4-34) U/L Alkaline Phosphatase 73 (38-126) U/L Total Protein 7.8 (6.3-8.2) g/dL Albumin 4.8 (3.5-5.0) g/dL Amylase 72 (30-110) U/L Lipase 89 (23-300) U/L Urine Color Urine Appearance (Clear) Urine pH (5.0-8.0) Ur Specific [place] (1.001-1.035) Urine Protein (Negative) Urine Glucose (UA) (Negative) Urine Ketones (Negative) Urine Blood (Negative) Urine Nitrite (Negative) Urine Bilirubin (Negative) Urine Urobilinogen (<2.0) mg/dL Ur Leukocyte Esterase (Negative) Urine HCG, Qual Not Detected (Not Detectd) - EKG Data -: EKG Interpreted by Me EKG Comments: 12-lead Electrocardiogram Interpretation Note EKG was reviewed and interpreted by myself. 12-lead ECG performed at 2332 is interpreted by me as revealing normal sinus rhythm at a rate of 56 beats per minute. Harvey is normal. VA interval is 142 ms, QRS duration is 75 ms, QTc is 410 ms.. There were no ST or T wave abnormalities to suggest myocardial ischemia or injury. R wave progression across the precordium was satisfactory. By my interpretation this EKG is non-diagnostic for acute ischemia. Disposition Clinical Impression: Biliary colic Disposition: HOME SELF-CARE Condition: Good Instructions (If sedation given, give patient instructions): Biliary Colic (ED), Abdominal Pain (ED) Is patient prescribed a controlled substance at d/c from ED?: No Referrals: Pato Tyler DO [Primary Care Provider] - 1-2 days Jeanne Ball MD [STAFF PHYSICIAN] - 1-2 days Time of Disposition: 03:42
[2022-12-15 02:13] LABS: Basophils % (A) 0 %; Eosinophils # (A) 0.1 k/uL (0-0.7); Eosinophils % (A) 1 %; HCT 41.8 % (34.0-46.0); HGB 14.4 gm/dL (11.4-16.0); Lymphocytes # (A) 1.3 k/uL (1.0-4.8); Lymphocytes % (A) 11 %; MCH 30.3 pg (25.0-35.0); MCHC 34.5 g/dL (31.0-37.0); MCV 87.8 fL (80.0-100.0); Monocytes # (A) 0.4 k/uL (0-1.0); Monocytes % (A) 3 %; Neutrophils # (A) 9.6 k/uL (1.3-7.7); Neutrophils % (A) 84 %; Platelet Count 273 k/uL (150-450); RBC 4.76 m/uL (3.80-5.40); RDW 12.1 % (11.5-15.5); WBC 11.5 k/uL (3.8-10.6)
[2022-12-15 02:18] LABS: Appearance,Urine Clear (Clear); Bilirubin,Urine Negative (Negative); Blood,Urine Negative (Negative); Color,Urine Colorless; Glucose,Urine (UA) Negative (Negative); Ketones,Urine Negative (Negative); Leukocyte Esterase,Urine Negative (Negative); Nitrite,Urine Negative (Negative); Protein,Urine Negative (Negative); Specific Gravity,Urine 1.014 (1.001-1.035); Urobilinogen,Urine <2.0 mg/dL (<2.0)
[2022-12-15 02:23] LABS: ALT 20 U/L (4-34); AST 28 U/L (14-36); African American GFR (CKD) >90 (>60 ml/min/1.73 sqM); Albumin 4.8 g/dL (3.5-5.0); Alkaline Phosphatase 73 U/L (38-126); Amylase 72 U/L (30-110); Anion Gap 13 mmol/L; Blood Urea Nitrogen 13 mg/dL (7-17); Calcium 9.7 mg/dL (8.4-10.2); Carbon Dioxide 20 mmol/L (22-30); Chloride 103 mmol/L (98-107); Glucose 116 mg/dL (74-99); Lipase 89 U/L (23-300); Non-African American GFR(CKD) >90 (>60 ml/min/1.73 sqM); Potassium 3.9 mmol/L (3.5-5.1); Sodium 136 mmol/L (137-145); Total Bilirubin 0.5 mg/dL (0.2-1.3); Total Protein 7.8 g/dL (6.3-8.2)
[2022-12-15 02:27] LABS: Partial Thromboplastin Time 23.8 sec (22.0-30.0); Prothrombin Time 10.5 sec (9.0-12.0)
--- NOTE | 2022-12-15 03:21 | US ---
EXAM: US Abdomen Limited, Gallbladder CLINICAL HISTORY: US Reason: RUQ pain TECHNIQUE: Real-time ultrasound of the right upper quadrant with image documentation. COMPARISON: October 05, 2017 renal ultrasound FINDINGS: Liver: The liver measures 13 cm with normal echotexture. No focal liver lesion is seen. Gallbladder: There are multiple shadowing stones within a dilated gallbladder measuring 11.5 cm long axis. The wall thickness is upper normal measuring 3 mm. No surrounding fluid. Sonographic Flynn sign is positive. Common bile duct: The common bile duct is nondilated measuring 4 mm. Pancreas: The visualized portion of the pancreas is unremarkable. Right kidney: The right kidney measures 10 cm with normal appearance. No hydronephrosis. Aorta: The abdominal aorta is nondilated. Inferior vena cava: The IVC is unremarkable. IMPRESSION: There are multiple shadowing stones within a dilated gallbladder measuring 11.5 cm long axis. The wall thickness is upper normal measuring 3 mm. No surrounding fluid. Sonographic Flynn sign is positive.
[2022-12-15] MEDS ORDERED: ONDANSETRON 4 MG ODT STARTER PACK 2 TAB BTL PO STA (03:50)
== END 2022-12-15 04:50 | disposition home or self-care (01) ==
LOC: EC 23:03
DX: K80.50 Calculus of bile duct without cholangitis or cholecystitis without obstruction (principal); F17.290 Nicotine dependence, other tobacco product, uncomplicated; Z86.73 Personal history of transient ischemic attack (TIA), and cerebral infarction without residual deficits
CPT/HCPCS: 36415; 80053; 82150; 83690; 85025; 85610; 85730; 81003; 81025; 76705; 99285; 96374; 96375 ×2; 96361 ×3; J2405; J1885; S0119; C9113

== ENCOUNTER 2023-11-25 14:55 | Outpatient (CLI) | payer OTHER ==
[2023-11-25] MEDS: LACTATED RINGERS 1,000 ML IV ONE (15:28)
[2023-11-25 16:43] VITALS: BP 114/73; PULSE 106; RESP 18; TEMP 98.3
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
== END 2023-11-25 16:44 | disposition home or self-care (01) ==
LOC: FBPOP 14:55
PROVIDERS: ATTEND Obstetrics & Gynecology Obstetrics
CPT/HCPCS: 36415; 59025; 99213